=== PATIENT | female | born 1990 | race American Indian/Alaskan Native ===

== ENCOUNTER 2021-03-18 10:02 | Inpatient (IN) | payer BC, MEDICAID ==
[2021-03-18] MEDS ORDERED: METHYLERGONOVINE MALEATE 0.2 MG/ML VIAL IM PRN (12:45)
[2021-03-18] MEDS ORDERED: OXYTOCIN 10 UNIT/1 ML INJ IM PRN (12:45)
[2021-03-18] MEDS ORDERED: miSOPROStol 200 MCG TAB PR PRN (12:45)
[2021-03-18] MEDS ORDERED: fentaNYL 100 MCG/2 ML INJ IV PRN (12:45)
[2021-03-18] MEDS ORDERED: NALOXONE 0.4 MG/1 ML INJ IV PRN (12:45)
[2021-03-18] MEDS ORDERED: CARBOPROST TROMETHAMINE 250 MCG/1 ML INJ IM PRN (12:45)
[2021-03-18] MEDS ORDERED: TERBUTALINE 1 MG/1 ML INJ SUB-Q PRN (12:45)
[2021-03-18] MEDS ORDERED: ONDANSETRON 4 MG/2 ML INJ IV PRN (12:45)
[2021-03-18] MEDS ORDERED: LOPERAMIDE 2 MG CAP PO PRN (12:45)
[2021-03-18] MEDS ORDERED: BUTORPHANOL 2 MG/1 ML INJ IV PRN ×2 (12:45)
[2021-03-18] MEDS ORDERED: MINERAL OIL 30 ML ORAL LIQD PO PRN (12:45)
[2021-03-18] MEDS ORDERED: LIDOCAINE (2%) 20 MG/1 ML VIAL 20 ML MDV INFILTRATI ONE (12:45)
[2021-03-18] MEDS ORDERED: ACETAMINOPHEN 325 MG TAB PO PRN (12:45)
[2021-03-18] MEDS ORDERED: ePHEDrine SULFATE 50 MG/1 ML INJ IV PRN (12:45)
[2021-03-18] MEDS ORDERED: OXYTOCIN DRIP 30 UNITS/500 ML BAG IV SCH ×2 (13:00)
[2021-03-18] MEDS: LACTATED RINGERS 1,000 ML IV SCH ×2 (13:15→19:14)
[2021-03-18] MEDS ORDERED: DINOPROSTONE 10 MG VAG SUPP VG ONE (14:00)
[2021-03-18] MEDS ORDERED: AMPICILLIN/NS 2 GM/100 ML 2 GM/100 ML BAG IV ONE ×2 (14:00→19:00)
[2021-03-18 14:15] LABS: Hematocrit 32.3 % (30.3-42.9); Hemoglobin 10.4 gm/dl (10.1-14.3); Mean Corpuscular HGB Conc 32 % (30-34); Mean Corpuscular Volume 75 fl (79-97); Platelet Count 242 K/mm3 (140-440); Red Blood Count 4.33 M/mm3 (3.65-5.03); Red Cell Distribution Width 16.1 % (13.2-15.2)
[2021-03-18 15:01] LABS: Alanine Aminotransferase 15 units/L (7-56); Uric Acid 4.9 mg/dL (3.5-7.6)
[2021-03-18 15:28] LABS: Bacteria,Urine 1+ /HPF (Negative); Bilirubin,Urine NEG (Negative); Blood,Urine NEG (Negative); Color,Urine Yellow (Yellow); Mucus,Urine 3+ /HPF; Urobilinogen,Urine < 2.0 mg/dL (<2.0)
[2021-03-18] MEDS ORDERED: AMPICILLIN/NS 1 GM/50 ML 1 GM/50 ML BAG IV SCH ×2 (17:00→23:00)
[2021-03-18] MEDS ORDERED: ALUM-MAG HYDROXIDE-SIMETHICONE 200-200-20MG/5ML ORAL LIQD 30 ML PO PRN (18:45)
[2021-03-18 21:34] LABS: Hepatitis C Virus Antibody Non-Reactive (NonReactive)
[2021-03-19] MEDS ORDERED: LIDOCAINE (2%) 20 MG/1 ML VIAL 20 ML MDV INFILTRATI ONE (05:55)
--- NOTE | 2021-03-19 06:01 | Anesthesia Consultation ---
Anesthesia Consult and Med Hx Date of service: 03/19/21 - Airway Anesthetic Teeth Evaluation: Poor ROM Head & Neck: Adequate Mental/Hyoid Distance: Adequate Mallampati Class: Class II Intubation Access Assessment: Probably Good - Pulmonary Exam CTA: Yes - Cardiac Exam Cardiac Exam: RRR - Pre-Operative Health Status ASA Pre-Surgery Classification: ASA3 Proposed Anesthetic Plan: Epidural - Pulmonary Hx Smoking: No Hx Asthma: No Hx Respiratory Symptoms: No SOB: No COPD: No Home Oxygen Therapy: No Hx Pneumonia: No Hx Sleep Apnea: No - Cardiovascular System Hx Hypertension: Yes Hx Coronary Artery Disease: No Hx Heart Attack/AMI: No Hx Angina: No Hx Percutaneous Transluminal Coronary Angioplasty (PTCA): No Hx Cardia Arrhythmia: No Hx Pacemaker: No Hx Internal Defibrillator: No Hx Valvular Heart Disease: No Hx Heart Murmur: No Hx Peripheral Vascular Disease: No - Central Nervous System Hx Neuromuscular Disorder: No Hx Seizures: No Hx Back Pain: Yes Hx Psychiatric Problems: No - Gastrointestinal Hx Ulcer: No Hx Gastroesophageal Reflux Disease: Yes - Endocrine Hx Renal Disease: No Hx End Stage Renal Disease: No Hx Cirrhosis: No Hx Liver Disease: No Hx Insulin Dependent Diabetes: No Hx Non-Insulin Dependent Diabetes: Yes (GDM) Hx Thyroid Disease: No Hx Hypothyroidism: No Hx Hyperthyroidism: No - Hematic Hx Anemia: No Hx Sickle Cell Disease: No - Other Systems Hx Alcohol Use: No Hx Substance Use: No Hx Cancer: No Hx Obesity: Yes
[2021-03-19] MEDS ORDERED: ePHEDrine SULFATE 50 MG/1 ML INJ IV PRN (06:02)
[2021-03-19] MEDS ORDERED: NALOXONE 2 MG/2 ML INJ IV PRN (06:02)
--- NOTE | 2021-03-19 06:02 | Progress Note ---
Labor Epidural - Labor Epidural Start Time: 05:25 Stop Time: 05:45 Performed by:: ALBIN GARVEY Procedure: Patient is requesting a laboring epidural for laboring pain. Patient IDed, H&P reviewed, all questions and concerns were answered, and consent was signed. Timeout was performed at bedside. Patient in sitting position. Sterile prep and drape was performed. [3] ml of 1% lidocaine skin wheal at L[3]- L [4]. 18- gauge OrderMyGeartead epidural needle was advanced to loss of resistance with saline technique 8cm. Negative CSF negative blood. Epidural catheter advanced to [12] centimeters. [NEGATIVE] Aspiration [NEGATIVE] test dose. Sterile dressing applied. Patient tolerated procedure.
[2021-03-19] MEDS ORDERED: ACETAMINOPHEN 325 MG TAB PO PRN (06:29)
[2021-03-19] MEDS ORDERED: KETOROLAC 30 MG/1 ML INJ IV PRN (06:29)
[2021-03-19] MEDS ORDERED: WITCH HAZEL/ GLYCERIN PAD TP PRN (06:29)
[2021-03-19] MEDS ORDERED: PROMETHAZINE 25 MG RECT SUPP PR PRN (06:29)
[2021-03-19] MEDS ORDERED: MAGNESIUM HYDROXIDE (MOM) ORAL LIQD UDC PO PRN (06:29)
[2021-03-19] MEDS ORDERED: ONDANSETRON 4 MG/2 ML INJ IV PRN (06:29)
[2021-03-19] MEDS ORDERED: diphenhydrAMINE 25 MG CAP PO PRN (06:29)
[2021-03-19] MEDS ORDERED: PROMETHAZINE 25 MG TAB PO PRN (06:29)
[2021-03-19] MEDS ORDERED: LANOLIN/ZINC/DIMETHICONE (LANSINOH) 7 GM TP PRN (06:29)
[2021-03-19] MEDS ORDERED: HYDROcodone/ACETAMINOPHEN 5-325 MG TAB PO PRN (06:29)
--- NOTE | 2021-03-19 06:39 | History and Physical Report ---
History of Present Illness Date of examination: 03/19/21 Date of admission: 03/18/21 10:02 Chief complaint: Brought in for induction at term for gest diabetes and chronic Hypertension History of present illness: . DOMO 03/31/21. Past History Past Medical History: hypertension - Obstetrical History Expected Date of Delivery: 03/31/21 Actual Gestation: 38 Week(s) 2 Day(s) : 3 Medications and Allergies Allergies Allergy/AdvReac Type Severity Reaction Status Date / Time shellfish derived Allergy Swelling Verified 03/18/21 13:06 Home Medications Medication Instructions Recorded Confirmed Last Taken Type Metformin HCl [metFORMIN] 1 tab PO DAILY 03/18/21 03/18/21 Unknown History NIFEdipine [Adalat cc] 30 mg PO DAILY 03/18/21 03/18/21 03/18/21 History Active Meds: Active Medications Acetaminophen (Acetaminophen 325 Mg Tab) 650 mg PO Q4H PRN PRN Reason: Pain, Mild (1-3) Acetaminophen (Acetaminophen 325 Mg Tab) 650 mg PO Q4H PRN PRN Reason: Pain MILD(1-3)/Fever >100.5/WHITEHEAD Hydrocodone Bitart/Acetaminophen (Hydrocodone/Acetaminophen 5-325 Mg Tab) 2 each PO Q6H PRN PRN Reason: Pain, Moderate (4-6) Al Hydrox/Mg Hydrox/Simethicone (Alum-Mag Hydroxide-Simethicone [phone]/5ml Oral Liqd 30 Ml) 30 ml PO Q8H PRN PRN Reason: Indigestion Last Admin: 03/18/21 19:00 Dose: 30 ml Documented by: Bisacodyl (Bisacodyl 10 Mg Rect Supp) 10 mg GA BID PRN PRN Reason: Constipation Butorphanol Tartrate (Butorphanol 2 Mg/1 Ml Inj) 1 mg IV Q2H PRN PRN Reason: Pain, Moderate(4-6) LABOR PAIN Butorphanol Tartrate (Butorphanol 2 Mg/1 Ml Inj) 2 mg IV Q2H PRN PRN Reason: Pain , Severe (7-10) Last Admin: 03/19/21 01:23 Dose: 2 mg Documented by: Carboprost Tromethamine (Carboprost Tromethamine 250 Mcg/1 Ml Inj) 250 mcg IM ONCE PRN PRN Reason: Uterine Bleeding Diphenhydramine HCl (Diphenhydramine 25 Mg Cap) 25 mg PO Q6H PRN PRN Reason: Itching Ephedrine Sulfate (Ephedrine Sulfate 50 Mg/1 Ml Inj) 10 mg IV Q2M PRN PRN Reason: Hypotension Fentanyl (Fentanyl 100 Mcg/2 Ml Inj) 100 mcg IV Q2H PRN PRN Reason: Pain,Severe (7-10) LABOR PAIN Oxytocin/Sodium Chloride (Pitocin/Ns 30 Unit/500ml) 30 units in 500 mls @ 2 mls/hr IV TITR REE; Protocol Lactated Ringer's (Lactated Ringers) 1,000 mls @ 125 mls/hr IV DIRECT REE Last Admin: 03/18/21 19:14 Dose: 999 mls/hr Documented by: Oxytocin/Sodium Chloride (Pitocin/Ns 30 Unit/500ml) 30 units in 500 mls @ 40 mls/hr IV TITR REE; Protocol Ampicillin Sodium (Ampicillin/Ns 1 Gm/50 Ml) 1 gm in 50 mls @ 100 mls/hr IV 0300,2300 REE; Protocol Last Admin: 03/18/21 23:32 Dose: 100 mls/hr Documented by: Fentanyl/Bupivacaine/Sodium Chlor (Fentanyl-Bupiv 2 Mcg/Ml-0.125%) 200 mcg in 100 mls @ 12 mls/hr EPIDURAL TITR REE; Protocol Oxytocin/Sodium Chloride (Pitocin/Ns 30 Unit/500ml) 30 units in 500 mls @ 40 mls/hr IV TITR REE; Protocol Ibuprofen (Ibuprofen 600 Mg Tab) 600 mg PO Q6H REE Ketorolac Tromethamine (Ketorolac 30 Mg/1 Ml Inj) 30 mg IV Q6H PRN PRN Reason: Pain, Moderate (4-6) Stop: 03/24/21 06:28 Labetalol HCl (Labetalol 100 Mg Tab) 100 mg PO DAILY REE Loperamide HCl (Loperamide 2 Mg Cap) 2 mg PO ONCE PRN PRN Reason: give with Hemabate Magnesium Hydroxide (Magnesium Hydroxide (Mom) Oral Liqd Udc) 30 ml PO HS PRN PRN Reason: Constipation Methylergonovine Maleate (Methylergonovine Maleate 0.2 Mg/Ml Vial) 0.2 mg IM ONCE PRN PRN Reason: Uterine Bleeding Mineral Oil (Mineral Oil 30 Ml Oral Liqd) 30 ml PO QHS PRN PRN Reason: Constipation Misoprostol (Misoprostol 200 Mcg Tab) 800 mcg GA ONCE PRN PRN Reason: Uterine Bleeding Multi-Ingredient Ointment (Lanolin/Zinc/Dimethicone (Lansinoh) 7 Gm) 1 applic TP PRN PRN PRN Reason: Sore Nipples Multivitamins/Iron/Calcium ( [id number]-[id number] Fumarate-Folic Acid Vit Tab) 1 each PO QDAY REE Naloxone HCl (Naloxone 0.4 Mg/1 Ml Inj) 0.1 mg IV Q2MIN PRN PRN Reason: Res Rate </= 8 or 02 SAT < 92% Naloxone HCl (Naloxone 2 Mg/2 Ml Inj) 0.2 mg IV Q5M PRN PRN Reason: Respiratory sedation Ondansetron HCl (Ondansetron 4 Mg/2 Ml Inj) 4 mg IV Q8H PRN PRN Reason: Nausea And Vomiting Last Admin: 03/18/21 19:14 Dose: 4 mg Documented by: Ondansetron HCl (Ondansetron 4 Mg/2 Ml Inj) 4 mg IV Q8H PRN PRN Reason: Nausea And Vomiting Oxytocin (Oxytocin 10 Unit/1 Ml Inj) 10 unit IM ONCE PRN PRN Reason: Uterine Bleeding Promethazine HCl (Promethazine 25 Mg Rect Supp) 25 mg GA Q6H PRN PRN Reason: Nausea And Vomiting Promethazine HCl (Promethazine 25 Mg Tab) 25 mg PO Q6H PRN PRN Reason: Nausea And Vomiting Sodium Chloride (Sodium Chloride 0.9% 10 Ml Flush Syringe) 10 ml IV PRN NR Terbutaline Sulfate (Terbutaline 1 Mg/1 Ml Inj) 0.25 mg SUB-Q ONCE PRN PRN Reason: Hyperstimulation/Hypertonicity Witch Lisandra/Glycerin (Witch Lisandra/ Glycerin Pad) 1 each TP PRN PRN PRN Reason: Hemorrhoid/cleansing/soothing Review of Systems All systems: negative - Vital Signs Vital signs: Vital Signs Pulse BP Pulse Ox 129 H 120/85 98 03/18/21 10:50 03/18/21 10:50 03/18/21 10:50 Temp Pulse Resp BP Pulse Ox 98.8 F 88 18 107/64 99 03/18/21 19:05 03/19/21 06:33 03/19/21 01:23 03/19/21 06:33 03/19/21 06:31 - Physical Exam Lungs: Positive: Normal air movement Genitourinary (Female): Positive: normal external genitalia Uterus: Positive: enlarged Extremities: Positive: normal Deep Tendon Reflex Grade: Normal +2 - Obstetrical FHR: category 1 Cervical Dilatation: 10 station: 0 Results Result Diagrams: 03/18/21 11:25 03/18/21 11:25 Abnormal lab results 03/18/21 03/18/21 Range/Units 11:25 11:25 MCV 75 L (79-97) fl MCH 24 L (28-32) pg RDW 16.1 H (13.2-15.2) % AST 43 H (5-40) units/L Lactate Dehydrogenase 218 H (91-180) units/L All other labs normal. Assessment and Plan - Patient Problems (1) Gestational diabetes mellitus Current Visit: Yes Status: Acute (2) Chronic hypertension affecting Current Visit: Yes Status: Acute (3) Term Current Visit: Yes Status: Acute Plan to address problem: Was admitted for induction of labor on the advise of Angelito.
--- NOTE | 2021-03-19 06:45 | Procedure Note ---
OB Delivery Note - Delivery Date of Delivery: 03/19/21 Surgeon: GLENN TAPIA Estimated blood loss: 300cc - Vaginal Intrapartum events: none Delivery induction: cervidil Delivery monitor: external FHT, external uterine Route of delivery: Delivery placenta: spontaneous, expressed Delivery cord: 3 umbilical vessels Episiotomy: none Delivery laceration: 1st degree, other (midline fourchette) Delivery repair: vicryl Anesthesia: epidural - Infant A at 1 minute: 8 at 5 minutes: 9 Infant Gender: Male
[2021-03-19] MEDS ORDERED: fentaNYL-BUPIV 2 MCG/ML-0.125% 200 MCG/100 ML BAG EPIDURAL SCH (07:00)
[2021-03-19] MEDS ORDERED: OXYTOCIN DRIP 30 UNITS/500 ML BAG IV SCH ×2 (07:00)
[2021-03-19] MEDS: IBUPROFEN 600 MG TAB PO SCH ×2 (07:20→18:05)
[2021-03-19] MEDS ORDERED: PRENATAL VIT27-FE FUMARATE-FOLIC ACID VIT TAB PO SCH (10:00)
--- NOTE | 2021-03-19 12:29 | Post Anesthesia Evaluation ---
- Post Anesthesia Evaluation Patient Participated: Yes Airway Patent: Yes Stable Respiratory Function: Yes Nausea/Vomiting: No Temp > 96.8F: Yes Pain Manageable: Yes Adequeate Hydration: Yes Anesthesia Complications: No Block Receding Appropriately: Yes Patient on Ventilator: No
[2021-03-19 17:24] LABS: Hematocrit 27.1 % (30.3-42.9); Hemoglobin 8.6 gm/dl (10.1-14.3)
[2021-03-20] MEDS: IBUPROFEN 600 MG TAB PO SCH ×2 (05:58→11:55)
--- NOTE | 2021-03-20 11:04 | Progress Note ---
Assessment and Plan - Patient Problems (1) Gestational diabetes mellitus Current Visit: Yes Status: Acute (2) Chronic hypertension affecting Current Visit: Yes Status: Acute (3) Term Current Visit: Yes Status: Acute (4) Status post vaginal delivery Current Visit: Yes Status: Acute Plan to address problem: Doing well. Observation to continue. Subjective - Subjective Date of service: 03/20/21 Principal diagnosis: status post day1 Interval history: . DOMO 03/31/21. Patient reports: appetite normal, voiding normally, pain well controlled, ambulating normally [place]: doing well Objective - Vital Signs Latest vital signs: Vital Signs Temp Pulse Resp BP BP Pulse Ox Pulse Ox 03/20/21 08:15 98.5 F 92 H 20 129/86 97 03/20/21 08:00 98 03/20/21 05:57 98 03/20/21 03:35 98 03/20/21 02:15 98 03/19/21 23:22 98.0 F 88 20 117/70 98 03/19/21 23:15 98 03/19/21 21:40 98 03/19/21 20:15 97 03/19/21 16:56 98.2 F 97 H 18 112/69 03/19/21 11:45 98.3 F 52 L 20 132/70 95 99 Intake and Output 03/19/21 03/20/21 03/20/21 23:59 07:59 15:59 Intake Total 480 Output Total 200 Balance 480 -200 Intake: Intake, Free Water 480 Output: Urine 200 Void 200 Other: Total, Output Amount 200 # Voids Void 3 1 - Exam Breasts: Present: deferred Lungs: Present: Normal air movement Abdomen: Present: normal appearance, soft Uterus: Present: normal, firm Extremities: Present: normal Deep Tendon Reflex Grade: Normal +2 - Labs Labs: Abnormal lab results 03/19/21 Range/Units 16:43 Hgb 8.6 L (10.1-14.3) gm/dl Hct 27.1 L (30.3-42.9) %
--- NOTE | 2021-03-20 16:11 | Discharge Summary ---
Providers - Providers Date of Admission: 03/18/21 10:02 Date of discharge: 03/20/21 Attending physician: GLENN TAPIA MD Primary care physician: GLENN TAPIA MD Hospitalization Reason for admission: induction of labor Delivery: Episiotomy: none Laceration: 1st degree (midline fourchette) Other procedures: none complications: none Discharge diagnosis: IUP at term delivered [place] baby: male Condition at discharge: Good Disposition: 01 HOME / SELF CARE / HOMELESS - Discharge Diagnoses (1) Gestational diabetes mellitus Status: Chronic (2) Chronic hypertension affecting Status: Chronic (3) Term Status: Resolved (4) Status post vaginal delivery Status: Acute Plan - Provider Discharge Summary Activity: routine, no sex for 6 weeks, no heavy lifting 4 weeks, no strenuous exercise Diet: routine Instructions: other (Patient to resume home blood sugar checks as before. Present accucheck sugar logs to OBGYN at next visit in 1wk. Patient also to resume taking her home blood pressure meds.) Additional instructions: [] Smoking cessation referral if applicable(refer to patient education folder for contact #) [] Refer to [facility] Booklet Call your doctor immediately for: * Fever > 100.5 * Heavy vaginal bleeding ( >1 pad per hour) * Severe persistent headache * Shortness of breath * Reddened, hot, painful area to leg or breast * Drainage or odor from incision. * Keep incision clean and dry at all times and follow doctor's instructions regarding bathing/showering - Follow up plan Follow up: GLENN TAPIA MD [Primary Care Provider] - 7 Days Forms: [employer] Discharge Summary
[2021-03-20 16:35] VITALS: BP 111/68
== END 2021-03-20 18:45 | disposition home or self-care (01) | DRG 806 ==
LOC: LD 10:02 → OB 03-19 11:49
PROVIDERS: ADMIT Obstetrics & Gynecology; ATTEND Obstetrics & Gynecology
PROC: 10E0XZZ Delivery of Products of Conception, External Approach (ICD-10-PCS; principal; 2021-03-19)
PROC: 3E0P7VZ Introduction of Hormone into Female Reproductive, Via Natural or Artificial Opening (ICD-10-PCS; 2021-03-19)
PROC: 3E0R3BZ Introduction of Anesthetic Agent into Spinal Canal, Percutaneous Approach (ICD-10-PCS; 2021-03-19)
PROC: 00HU33Z Insertion of Infusion Device into Spinal Canal, Percutaneous Approach (ICD-10-PCS; 2021-03-19)
PROC: 0HQ9XZZ Repair Perineum Skin, External Approach (ICD-10-PCS; 2021-03-19)
DX: O24.429 Gestational diabetes mellitus in childbirth, unspecified control (principal); O10.92 Unspecified pre-existing hypertension complicating childbirth; Z37.0 Single live birth; Z3A.38 38 weeks gestation of pregnancy; Z91.013 Allergy to seafood; Z20.822 Contact with and (suspected) exposure to COVID-19; O99.62 Diseases of the digestive system complicating childbirth; K21.9 Gastro-esophageal reflux disease without esophagitis; O70.0 First degree perineal laceration during delivery
CPT/HCPCS: 36415; 59200; 81001; 82565; 82962; 83615; 84450; 84460; 84550; 85014; 85018; 85027; 86592; 86706; 86762; 86803; 86850; 86900; 86901; 87806; G0378; J0290; J0595; J2405; J7120; U0003